=== PATIENT | female | born 1985 | race Caucasian/White ===

== ENCOUNTER 2018-04-09 12:24 | Emergency (ER) | payer MEDICARE ==
[~2018-04-09] VITALS: Ht 160 cm; Wt 63.5 kg
[2018-04-09 12:34] VITALS: BP_SYST 119
[2018-04-09 14:12] VITALS: BP_SYST 128
== END 2018-04-09 13:20 | disposition home or self-care (01) ==
LOC: SED 12:24
DX: H10.9 Unspecified conjunctivitis (principal); R03.0 Elevated blood-pressure reading, without diagnosis of hypertension
CPT/HCPCS: 99283

== ENCOUNTER 2021-11-27 03:00 | Emergency (ER) | payer BC, MEDICARE ==
[~2021-11-27] VITALS: Ht 160 cm; Wt 77.1 kg
[2021-11-27 03:25] VITALS: BP_SYST 130
--- NOTE | 2021-11-27 03:30 | NUR ---
Patient states that pain started two days ago while at work. States she must have rolled it but does not remember exact time of injury. No swelling, redness, bruising, or trauma noted.
--- NOTE | 2021-11-27 03:52 | NUR ---
RAD at bedside for imaging.
--- NOTE | 2021-11-27 04:18 | NUR ---
ER Dr. Fernandez at bedside examining patient.
[2021-11-27] MEDS ORDERED: IBUP-1969 PO (04:42)
--- NOTE | 2021-11-27 04:50 | NUR ---
Patient given written and verbal discharge instructions and verbalizes understanding. ER MD discussed with patient the results and treatment provided. Patient in stable condition. ID arm band removed. Rx of Ibuprofen sent to pharmacy of choice. Patient educated on pain management and to follow up with PMD. Pain Scale 1/10 Opportunity for questions provided and answered. Medication side effect fact sheet provided.
[2021-11-27 04:53] VITALS: BP_SYST 127
== END 2021-11-27 04:50 | disposition home or self-care (01) ==
LOC: SED 03:00
DX: M79.671 Pain in right foot (principal)
CPT/HCPCS: 81025; 99284

== ENCOUNTER 2023-12-05 21:16 | Emergency (ER) | payer BC ==
[~2023-12-05] VITALS: Ht 160 cm; Wt 83.9 kg
[~2023-12-05 21:16] MED LIST: IBUP-1969 PO
[2023-12-05 22:05] VITALS: BP_SYST 111; PULSE 75; RESP 18; TEMP 98; O2SAT 98
[2023-12-05] MEDS: IBUPROFEN 600 MG TABLET PO ONE (22:59)
[2023-12-05] MEDS: ACETAMINOPHEN 500 MG TABLET PO ONE (23:00)
[2023-12-05 23:04] VITALS: BP_SYST 118; PULSE 83; RESP 18; TEMP 98; O2SAT 99
== END 2023-12-05 23:04 | disposition home or self-care (01) ==
LOC: SED 21:16
DX: S63.696A Other sprain of right little finger, initial encounter (principal); Z79.899 Other long term (current) drug therapy; W23.0XXA Caught, crushed, jammed, or pinched between moving objects, initial encounter; Y93.89 Activity, other specified; Y92.89 Other specified places as the place of occurrence of the external cause; Y99.8 Other external cause status
CPT/HCPCS: 73140; 99283